=== PATIENT | male | born 1950 | race Caucasian/White ===

== ENCOUNTER → 2018-10-11 | Day surgery (SDC) | payer MEDICARE, OTHER ==
[~2018-10-11] MED LIST: Lactated Ringers 1,000 ML IV SCH; Propofol 200 MG/20 ML SDV IV ONE
[2018-10-11 11:56] VITALS: BP 133/65
--- NOTE | 2018-10-11 13:56 | OR ---
DATE OF OPERATION: 10/11/2018 PREOPERATIVE DIAGNOSIS: POSITIVE COLOGUARD. POSTOPERATIVE DIAGNOSIS: POSITIVE COLOGUARD. SURGEON: Bill Otero MD PROCEDURE: FULL-LENGTH COLONOSCOPY. ANESTHESIA: DYNAMICS AX TECHNICAL ARCHITECT. COMPLICATIONS: None. SPECIMEN: None. FINDINGS: Normal full-length colonoscopy. RECOMMENDATIONS: Followup colonoscopy on a routine 10-year basis. INDICATIONS: The patient was in for a physical, apparently declined a routine colonoscopy and elected to have a Cologuard which was positive. Savlador Tejeda sent him for endoscopy. DESCRIPTION OF PROCEDURE: The patient was prepped and draped, placed in left lateral decubitus position. A lubricated Olympus colonoscope was inserted and easily advanced to the cecum where we could directly visualize the ileocecal valve and appendiceal orifice. The bowel prep was exceptional. Upon withdrawal of the scope, throughout the entire length of the colon, I could find no signs of any polyps, mass, ulceration, bleeding sites, no signs of malignancy. There were no vascular abnormalities or signs of colitis. No signs of any significant diverticula. The rectal vault was benign. Retroflexion of the scope in the rectum showed no anal lesions. Air was suctioned, scope removed without complication. LUIS FERNANDO/LOTTIE /[id number]
== END ==
LOC: CC.SDS 09:35
PROVIDERS: ATTEND Family Medicine
DX: R19.5 Other fecal abnormalities (principal); I25.10 Atherosclerotic heart disease of native coronary artery without angina pectoris; I10 Essential (primary) hypertension; N40.0 Benign prostatic hyperplasia without lower urinary tract symptoms; E11.9 Type 2 diabetes mellitus without complications; E78.5 Hyperlipidemia, unspecified; R79.89 Other specified abnormal findings of blood chemistry; G56.02 Carpal tunnel syndrome, left upper limb; F17.210 Nicotine dependence, cigarettes, uncomplicated; Z79.82 Long term (current) use of aspirin; Z79.899 Other long term (current) drug therapy
CPT/HCPCS: 45378; J2704; J7120; 00811

== ENCOUNTER 2022-06-23 09:43 | Emergency (ER) | payer MEDICARE, OTHER ==
[2022-06-23] MEDS ORDERED: Albuterol/Ipratropium 3.0-0.5 MG/3 ML Neb Soln NEB ONE (09:59)
[2022-06-23] MEDS ORDERED: Furosemide 40 MG/4 ML VIAL IVPUSH ONE (09:59)
[2022-06-23] MEDS ORDERED: methylPREDNISolone Sodium Succinate 125 MG/2 ML SDV IVPUSH SCH (10:00)
[2022-06-23] MEDS ORDERED: Sodium Chloride 0.9% 1,000 ML IV SCH (10:45)
[2022-06-23] MEDS ORDERED: Piperacillin/Tazobactam 3.375 GM in Sodium Chloride 0.9% 100 ML IV SCH (10:45)
[2022-06-23] MEDS ORDERED: LORazepam 2 MG/ML Syringe IVPUSH ONE (11:04)
[2022-06-23 11:36] VITALS: BP 117/71; PULSE 91
== END 2022-06-23 11:58 ==
LOC: CC.ED 09:43
DX: E87.1 Hypo-osmolality and hyponatremia (principal); R74.8 Abnormal levels of other serum enzymes; D72.829 Elevated white blood cell count, unspecified; Z79.899 Other long term (current) drug therapy; Z79.82 Long term (current) use of aspirin
CPT/HCPCS: 36415; 71045; 80053; 83690; 83880; 84484; 85025; 85379; 86850; 86900; 86901; 87040; 93005; 94640; 96361; 96365; 96375; 99285; J1940; J2060; J2543; J2930; J7030; 99284; J7620-GY